=== PATIENT | female | born 2000 | race African-American/Black ===

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

== ENCOUNTER → 2020-02-14 | Outpatient (CLI) | payer MEDICAID ==
[~2020-02-14] MED LIST changes: +IBU600 MG PO; +PERCOCET 325 MG1 TA2 PO
== END ==
LOC: ZCOL.LAB 08:22
DX: Z20.828 Contact with and (suspected) exposure to other viral communicable diseases (principal)

== ENCOUNTER 2020-02-19 05:38 | Inpatient (IN) | payer MEDICAID ==
[2020-02-19] VITALS (22 sets, daily range): BP systolic 92–164; BP diastolic 60–104; PULSE 64–100; TEMP 98–98.3
[~2020-02-19] VITALS: Ht 165.1 cm; Wt 80.0 kg
[~2020-02-19 05:38] MED LIST changes: -IBU600 MG PO; -PERCOCET 325 MG1 TA2 PO
[2020-02-19 06:13] LABS: BASO % 0.3 % (0.0-2.0); EOS # 0.1 (0.0-0.7); EOS % 1.4 % (0-4.0); GRAN # 5.3 (1.4-6.5); GRAN % 58.7 % (42.2-75.2); LYMPH # 2.7 (1.2-3.4); LYMPH % 29.9 % (20.0-51.0); MEAN CELL VOLUME 85 fl (80.0-95.0); MEAN CORPUSCULAR HGB CONC 31 g/dl (33.0-37.0); MEAN PLATELET VOLUME 11.4 fl (7.4-10.4); MONO # 0.9 (0.1-0.6); MONO % 9.4 % (1.7-9.3); PLATELET COUNT 267 K/mm3 (130-400); RED BLOOD COUNT 3.29 M/mm3 (4.10-5.30); REDCELL DISTRIBUTION WIDTH-CV 13.8 % (11.5-14.5)
[2020-02-19 06:19] LABS: HEMATOCRIT 27.8 % (35.0-45.0); HEMOGLOBIN 8.5 g/dl (12.0-15.0); MEAN CORPUSCULAR HEMOGLOBIN 26 pg (26.0-32.0)
--- NOTE | 2020-02-19 06:25 | NUR ---
0625- Bedside report received. Consent forms explained and signed. 0635- Assessment competed. Urine sample obtained. Plan of care reviewed with patient who verbalizes understanding.
[2020-02-19 07:32] LABS: TRICYCLIC ANTIDEPRESS URINE NEGATIVE
--- NOTE | 2020-02-19 08:50 | NUR ---
Patient to PACU via bed. Monitors applied. Plan of care reviewed with patient who verbalizes understanding.
--- NOTE | 2020-02-19 13:46 | NUR ---
The patient tested positive for marijuana at admission. A CPS report was made. Intake # [id number].
--- NOTE | 2020-02-19 18:30 | NUR ---
Report recieved. Resting in bed. Updated whiteboard and reviewed POC. at bedside asleep.
[2020-02-20] VITALS: BP 133/81; PULSE 73; TEMP 97.9
--- NOTE | 2020-02-20 01:05 | NUR ---
Voided 100mls of tea colored urine. Fresh ice water to bedside. Encouraged to drink pitcher of water within the next two hours.
[2020-02-20 04:32] VITALS: BP 121/85; PULSE 77; TEMP 97.9
[2020-02-20 08:25] VITALS: BP 130/84; PULSE 87; TEMP 98.5
--- NOTE | 2020-02-20 09:22 | NUR ---
Initial visit; Mom thanked Desktop [employer] Associate for offering congratulations and God's blessings for the of her son. Desktop Publishing Associate thanked patient for choosing [facility].
--- NOTE | 2020-02-20 09:49 | NUR ---
Preschool Teacher'S Assistant consulted for the patient due to positive UDS for marijuana at admission. The patient also tested positive during on 12.31.2019. The patient's nurse has no concerns about the patient returning home at discharge. She reports she is appropriate with the baby. The patient has another child in the home and the FOB is with the other child at this time. SERGIO met with the patient. The patient reports she has all the supplies she needs. Her other child is 10 months old and was born in [place]. The patient is signed up for [facility]. She has no concerns about returning home with baby. SERGIO addressed the marijuana use. She reports she did it due to not having an appetite and it helped her feel better. She states that she feels she does not have a problem with marijuana use. She declined treatment. SERGIO discussed and provided a resource guide for the patient. SERGIO faxed the results of the UDS to [facility]. SERGIO collaborated the above information with the patient's nurse.
--- NOTE | 2020-02-20 10:24 | NUR ---
Printing Gray Cloth Tender contacted [facility] to provided updated information such as positive UDS during and updated address information. The [facility] mortar worker provided a new [facility] intake # [id number] with the added information.
[2020-02-20 16:30] VITALS: BP 134/81; PULSE 76; TEMP 98.4
[2020-02-20 21:10] VITALS: BP 132/80; PULSE 84; TEMP 97.3
[2020-02-21 09:25] VITALS: BP 142/92; PULSE 88; TEMP 97.2
[2020-02-21 16:40] VITALS: BP 136/78; PULSE 78; TEMP 98.1
[2020-02-21 19:14] VITALS: BP 140/85; PULSE 96; TEMP 98.8
[2020-02-22 08:30] VITALS: BP 149/89; PULSE 94; TEMP 97.8
[2020-02-22] MEDS ORDERED: IBU600 MG PO (09:33)
[2020-02-22] MEDS ORDERED: PERCOCET 325 MG1 TA2 PO (09:34)
--- NOTE | 2020-02-22 10:00 | NUR ---
Rests in bed, alert. 1012 Ibuprofen 600 mg given as ordered.
--- NOTE | 2020-02-22 12:00 | NUR ---
Rests in bed, alert. Discharge instructions given, verbalizes understanding.
--- NOTE | 2020-02-24 09:42 | NUR ---
Patient's infant's cord results were positive for cannabinoids. Worker filed a CPS report #[id number] and faxed positive cord results.
== END 2020-02-22 12:00 | disposition home or self-care (01) | DRG 788 ==
LOC: OB 05:38
PROVIDERS: ADMIT Obstetrics & Gynecology
PROC: 10D00Z1 Extraction of Products of Conception, Low, Open Approach (ICD-10-PCS; principal; 2020-02-19)
DX: O34.211 Maternal care for low transverse scar from previous cesarean delivery (principal); Z3A.39 39 weeks gestation of pregnancy; Z37.0 Single live birth; O99.02 Anemia complicating childbirth; O13.4 Gestational [pregnancy-induced] hypertension without significant proteinuria, complicating childbirth
CPT/HCPCS: J0690; J1100; J1885; J2370; J2405; J2590; J7120

== ENCOUNTER 2023-03-08 13:41 | Outpatient (CLI) | payer MEDICAID ==
[~2023-03-08] VITALS: Ht 165.1 cm; Wt 79.1 kg
[2023-03-08] VITALS (7 sets, daily range): BP systolic 149–189; BP diastolic 97–124; PULSE 67–82
[~2023-03-08 13:41] MED LIST changes: +IBU600 MG PO; +MACROBID 1100 MG/CAP PO; +PERCOCET 325 MG1 TA2 PO; +ZOFRAN ODT4 MG PO
--- NOTE | 2023-03-08 13:56 | NUR ---
PT OREINTED TO ROOM AND CHANGED INTO GOWN. PLACED ON MONITORS. FIRST BP 189/125. FHT CATAGORY 1. PT HAS BEEN FEELING CX BUT UNSURE IF THEY ARE GURPREET BREAUX OR REAL CX. PT REPORTS FEELING PAIN IN HER BACK. PT STATED THAT AT 1230 TODAY SHE FELT A GUSH OF FLUID, BUT WAS UNSURE WHAT IT WAS. THOUGHT IT MIGHT HAVE BEEN HER WATER BREAKING. PT STATED LAST SEXUAL INTERCOURSE WAS 3-4 DAYS AGO. AMNIOTEST WAS POSITIVE. PT IS FEELING REGULAR MOVEMENT.
[2023-03-08 14:27] LABS: BASO % 0.4 % (0.0-2.0); EOS # 0.1 K/mm3 (0.0-0.7); EOS % 1.3 % (0.0-4.0); GRAN # 5.5 K/mm3 (1.4-6.5); GRAN % 65.1 % (42.2-75.2); HEMOGLOBIN 10.3 g/dl (12.5-16.0); LYMPH # 2.1 K/mm3 (1.2-3.4); LYMPH % 24.4 % (20.0-51.0); MEAN CELL VOLUME 90 fl (80.0-100.0); MEAN CORPUSCULAR HEMOGLOBIN 30 pg (27-31); MEAN CORPUSCULAR HGB CONC 34 g/dl (33.0-37.0); MEAN PLATELET VOLUME 10.9 fl (7.4-10.4); MONO # 0.7 K/mm3 (0.1-0.6); MONO % 8.2 % (1.7-9.3); PLATELET COUNT 276 K/mm3 (130-400); REDCELL DISTRIBUTION WIDTH-CV 12.2 % (11.5-14.5)
[2023-03-08 14:36] LABS: HEMATOCRIT 30.6 % (37.0-47.0)
[2023-03-08 14:45] LABS: ALBUMIN 2.2 gm/dL (3.5-5.0); BILIRUBIN,TOTAL 0.4 mg/dL (0.2-1.2); CALCIUM 8.4 mg/dL (8.4-10.2); CREATININE, serum 0.85 mg/dL (0.57-1.11); POTASSIUM 4.3 mmol/L (3.5-4.5); TOTAL PROTEIN 5.8 gm/dL (6.2-8.1)
[2023-03-08 15:23] LABS: COLLECTION METHOD CLEAN CATCH
[2023-03-08 15:43] LABS: URINE APPEARANCE Clear (CLEAR/HAZY); URINE COLOR Yellow (YELLOW)
[2023-03-08 15:44] LABS: URINE BLOOD Negative (NEGATIVE); URINE GLUCOSE Negative (NEGATIVE); URINE KETONE Negative (NEGATIVE); URINE NITRATE Negative (NEGATIVE); URINE PROTEIN(semi-quant) 3+ (NEGATIVE); URINE UROBILINOGEN 0.2 E.U/dL (0.2-1.0)
[2023-03-08 15:45] LABS: URINE BACTERIA Rare /hpf (NONE SEEN); URINE RBC 0-2 /hpf (0-2); URINE WBC 0-2 /hpf (0-2)
--- NOTE | 2023-03-08 17:56 | NUR ---
1340- Dr Linares on unit, was asked if he wanted any labs for incoming 33 week pt. He ordered a CBC, CMP, and a UA. 1356- Pt arrived stating that she had felt a gush of fluid at 1230. Said it had been several days since sexual intercourse. Amnisure test was positive. 1420- Called Dr Linares to report findings on Amnisure and pt's blood pressures. Dr Linares ordered at ROM+ test, and IV with fluids. 1458- IV started with LR's after multiple attempts by 3 staff to get IV. Pt was admittedly dehydrated. 1525- Called Dr Linares due to pt's high bp's. Dr Linares ordered 200 mg Labetalol PO. 1533- 200 mg Labetalol given PO to pt. 1615- Pt began vomiting due to headache. 1625- Called Dr Linares back to report headache with vomitting. Dr Linares ordered 10 mg IV push. Said he would be her shortly, and was planning to transfer her. 1640- Dr Linares on unit. Ordered 12 mg of Celestone IM. 1647- Betamethasone 12mg was given to pt IM. 1655- Dr Linares has spoken with [facility] where pt is being transfered. Minesh had requested we start Magnesium 4 gm bolus and 2 gm/hr maintenance infusion. Dr Linares ordered 4 gm bolus, and 2 gr/hr maintenance magnesium infusion. 1720- 4 gr bolus of magnesium started. 1730- Lang catheter placed. Reflexes +2. RR 16. 1733- 2 gm/hr maintenance magnesium started. 1745- EMS here for transport. Pt's BP 162/91. 1756- EMS departed with Pt to [facility].
== END 2023-03-08 17:56 | disposition short-term general hospital (02) ==
LOC: LDRO 13:41
PROVIDERS: Obstetrics & Gynecology
DX: O16.3 Unspecified maternal hypertension, third trimester (principal); Z3A.33 33 weeks gestation of pregnancy
CPT/HCPCS: J0702; J1920; J3475; J7120